=== PATIENT | male | born 1940 | race Caucasian/White ===

== ENCOUNTER → 2016-12-28 | Outpatient (CLI) | payer OTHER, MEDICARE ==
[~2016-12-28] VITALS: Ht 175.3 cm; Wt 101.8 kg
[~2016-12-28] MED LIST: AMLODIPINE BESYL5 MG PO; ASPERDRINK81 MG PO; ASPIR 8181 MG PO; ASPIRIN EC81 M1 PO; ASPIRIN325 PO; ATENOLOL 100MG100 M2 PO; ATENOLOL 50 MG50 M1 OR; ATORVASTATIN CA40 MG PO; BACTRIM DS TAB1 EACH PO; CELEBREX 200 M200 M1 PO; CELEBREX 200 M200 MG PO; CIPRO PO; COLACE100 MG PO; ELIQUIS5 MG PO; FISH OIL 1,0001 EAC5 OR; FISH OIL 1,001000 M2 PO; GLUCOSAMINE &1 EACH PO; HYDROCODON-ACE1 EAC1 PO; IRON PO; LISINOPRIL40 MG PO; METHOCARBAMOL500 M2 PO; MULTIVITAMINS PO; OMEPRAZOLE40 MG PO; PENICILLIN VK500 MG PO; SIMVASTATIN80 MG PO; TAMSULOSIN HCL0.4 MG PO; TENORMIN50 MG PO; TRAMADOL 50 MG50 MG PO; TYLENOL EXTRA500 MG PO; ZETIA10 MG PO
--- NOTE | ~2016-12-28 | HPC ---
[facility] [place] [address] PAIN MANAGEMENT CONSULTATION Name: ANDRE SOUSA Room #: REG ERI Pavon#: [id number] Admission: 12/28/16 Attend Phys: Alhaji Loyd DO Discharge: Date of : 42 Report #: [id number] THIS REPORT FOR: //name// CC: David Loyd HISTORY OF PRESENT ILLNESS: The patient is a very pleasant 76-year-old gentleman long known to the pain clinic, typically treated for lumbar radiculopathy status post decompressive laminectomy, prior history of pyriformis syndrome and right hip DJD. He was last seen in the pain clinic little greater than a year ago, 09/18/2015. He was given epidural injection at L3-L4 at that time. Ultimately, he progressed to have hemilaminectomy and foraminectomy with Dr. Andi Elena on 10/08/2015. This had helped with the ongoing lumbar radicular symptoms. In the interval since I last saw him, he has had significant medical history changes, he has had a right total hip arthroplasty on 10/25/2016. He has had four renal lithiasis episodes this past year. He was diagnosed with atrial fibrillation in January 2016. He is on Eliquis for this latter diagnosis. He returns to pain clinic today with a new complaint. He notes he had fallen out of bed about 2-3 months ago with acute exacerbation of pain in the upper left back, some radiation to the left shoulder and into the triceps. Rates the pain at 2 on a VAS, describes a chronic knot in the upper back. He has been seeing an tractor operator laser leveling. He has been doing some acupressure and myofascial release, but pain continues. He has been using a topical analgesic gel with minimal efficacy. PHYSICAL EXAMINATION: Shows a 76-year-old gentleman, BMI is 33.1 kilograms per meter squared. Vital signs stable as noted in the EMR. Cervical range of motion is full, modest exacerbation of pain with cervical extension. Upper extremity strength shows slight decreased left triceps strength. Hand grasp is symmetric. Deep tendon reflexes are preserved for the biceps and brachioradialis, slight diminution on the left triceps reflex compared to the right. Tinel's is negative. Hand grasp is symmetric. Does have discrete trigger point in the upper thoracic paravertebral muscles just left of midline. Skin integument is otherwise intact. DIAGNOSTIC STUDIES: There are no recent diagnostic studies available for evaluation at this time. ASSESSMENT: Symptomatic myofascial pain with possible component of left C7 radiculopathy in a gentleman with history of lumbar decompressive laminectomy, radicular symptoms, pyriformis syndrome and right hip degenerative joint disease, status post total hip arthroplasty. RECOMMENDATIONS: [address] [address] PAIN MANAGEMENT CONSULTATION Name: ANDRE SOUSA Room #: REG ERI Pavon#: [id number] Admission: 12/28/16 Attend Phys: Alhaji Loyd DO Discharge: Date of : 41 Report #: [id number] 1. Trigger point injections today left thoracic paravertebral muscle. 2. Ice the area today. 3. If this does not ameliorate symptoms in the next 5-7 days, we will move forward with cervical MRI. I would like to see the patient 3 days off Eliquis. If symptoms persist, we will review an MRI at that time and consider moving forward with cervical epidural injection. The patient was seen for approximately 25 minutes today, greater than 50% of time spent counseling the patient. PROCEDURE NOTE: Trigger point injections times 1. PROCEDURE: After written informed consent was obtained, the patient was placed in the seated position. Skin overlying the left upper thoracic paravertebral muscle and trigger point was identified, cleansed with alcohol. Using a 27-gauge needle, 20 mg triamcinolone plus 3 mL of 0.5% preservative-free bupivacaine plus 3 mL of 1.5% preservative-free Xylocaine with 1:200,000 epinephrine was injected into and around the trigger point. Needle was removed. The area was cleansed, Band-Aids applied. The patient monitored for an appropriate period of time, discharged in good and stable condition, noting some incremental improvement of baseline pain. We will plan on scheduling an MRI and followup office visit, off Eliquis; however, if this does help with current symptoms, we will have him simply cancel the MRI and a followup appointment. <ELECTRONICALLY SIGNED> By: Alhaji Loyd DO 12/29/16 [id number] Alhaji Loyd DO /nt
[2016-12-28 14:09] VITALS: BP 120/85
== END | disposition home or self-care (01) ==
LOC: PAIN 08:43
DX: M79.1 Myalgia (principal); Z98.890 Other specified postprocedural states; M16.11 Unilateral primary osteoarthritis, right hip; Z68.33 Body mass index [BMI] 33.0-33.9, adult; M54.16 Radiculopathy, lumbar region; Z87.891 Personal history of nicotine dependence

== ENCOUNTER → 2017-01-11 | Outpatient (CLI) | payer OTHER, MEDICARE ==
[~2017-01-11] VITALS: Ht 177.8 cm; Wt 101.6 kg
--- NOTE | ~2017-01-11 | HPC ---
[facility] [address] [address] PAIN MANAGEMENT CONSULTATION Name: ANDRE SOUSA Room #: REG ERI Pavon#: [id number] Admission: 01/11/17 Attend Phys: Alhaji Loyd DO Discharge: Date of : 41 Report #: [id number] THIS REPORT FOR: //name// CC: David Loyd HISTORY OF PRESENT ILLNESS: The patient is a very pleasant 76-year-old gentleman long known to the pain clinic, initially treated for lumbar radiculopathy, progressed to have decompressive laminectomy. He was last seen in pain clinic on 12/28/2016. Had ongoing left cervical radicular symptoms. I did trigger point injections with some efficacy and ordered an MRI of the cervical spine. He returns to pain clinic today, we reviewed the MRI findings from 01/05/2017. The patient has significant cervical compromise, extensive multilevel cervical spondylosis. C4-C5 notes severe left lateral recess stenosis with effacement of a left C5 nerve root. C5-C6 has broad based posterior disk osteophyte with marked prominence in the left lateral recess region resulting in severe left paracentral and left lateral recess stenosis with compromise in the left C6 nerve root. Canal was narrowed to 7.5 mm. Has severe left neural foraminal stenosis at C6-C7 as well. PHYSICAL EXAMINATION: Shows ongoing cervical radicular symptoms with pain primarily in the C6-C7 radicular pattern and weakness in the left triceps. ASSESSMENT: Symptomatic cervical radiculopathy by clinical exam and history. RECOMMENDATIONS: Cervical epidural injection under fluoroscopy today, follow up in 4 weeks for reevaluation. The patient has been off his Eliquis for 4 days. Have him resume Eliquis tonight. ASSESSMENT: Symptomatic cervical radiculopathy. PROCEDURE: Cervical epidural injection under fluoroscopy. PROCEDURE NOTE: After written and informed consent was obtained including risk of dural puncture, spinal cord trauma, paralysis and increased pain, the patient was taken to the fluoroscopy suite and placed in the prone position, with appropriate abdominal bolstering, neck was flexed, palms under the thighs. Skin was prepped with ChloraPrep. Sterile draping was applied. Skin wheal with 1% Xylocaine was raised. A 22-gauge 3-1/2 inch epidural Tuohy needle was placed via a midline approach at the C7-T1 interspace, advanced under biplanar fluoroscopy using continuous loss of resistance. With appropriate loss of resistance at the expected depth on lateral view, the glass loss of resistance syringe was disconnected. A low volume extension tubing was connected to the needle and a 5 mL syringe. Negative aspiration for cerebrospinal fluid or blood was noted. A 1 mL of Omnipaque was injected which showed spread within the [facility] [address] [place] [address] PAIN MANAGEMENT CONSULTATION Name: ANDRE SOUSA Room #: REG ERI Pavon#: [id number] Admission: 01/11/17 Attend Phys: Alhaji Loyd DO Discharge: Date of : 41 Report #: [id number] epidural space on biplanar fluoroscopy. This was followed with 80 mg of triamcinolone plus 1 mL of 1.5% preservative Xylocaine. Needle was withdrawn to the interspinous ligament, 0.5 mL of Xylocaine was used to flush the needle. The needle was then completely withdrawn. The area was cleansed. Band-Aid was applied. The patient was allowed to move off the procedure table and ambulated to the recovery room, monitored for an appropriate period of time, discharged in good and stable condition. <ELECTRONICALLY SIGNED> By: Alhaji Loyd DO 01/12/17 0731 [id number] Alhaji Loyd DO /nt
[2017-01-11 13:09] VITALS: BP 150/98
== END | disposition home or self-care (01) ==
LOC: PAIN 06:45
DX: M54.12 Radiculopathy, cervical region (principal); M54.16 Radiculopathy, lumbar region; Z98.890 Other specified postprocedural states; Z87.891 Personal history of nicotine dependence

== ENCOUNTER → 2017-12-28 | Outpatient (CLI) | payer OTHER, MEDICARE ==
[~2017-12-28] MED LIST changes: +CLARITIN10 MG PO
== END ==
LOC: RAD 12:26
DX: N20.2 Calculus of kidney with calculus of ureter (principal); M47.816 Spondylosis without myelopathy or radiculopathy, lumbar region; M41.86 Other forms of scoliosis, lumbar region

== ENCOUNTER → 2018-04-26 | Outpatient (CLI) | payer OTHER, MEDICARE | LOC: RAD 16:39 | DX: M50.121 Cervical disc disorder at C4-C5 level with radiculopathy (principal); M48.02 Spinal stenosis, cervical region; I65.29 Occlusion and stenosis of unspecified carotid artery; Z88.8 Allergy status to other drugs, medicaments and biological substances ==

== ENCOUNTER → 2018-05-06 | Outpatient (CLI) | payer OTHER, MEDICARE ==
[~2018-05-06] VITALS: Ht 177.8 cm; Wt 101.2 kg
[~2018-05-06] MED LIST changes: +AMLODIPINE BESY10 MG PO; -AMLODIPINE BESYL5 MG PO
--- NOTE | ~2018-05-06 | HPC ---
[facility] [place] [address] [address] PAIN MANAGEMENT CONSULTATION Name: LARSANDRE SANDERS Room #: REG [facility].#: [id number] Admission: 05/06/18 ������������������ Attend Phys: Aramis Pham MD Discharge: ������������������ Date of : 41 Report #: [id number] THIS REPORT FOR: //name// CC: David Pham DATE OF SERVICE: 05/06/2018 CHIEF COMPLAINT: Followup visit for chronic pain today complaining of cervical pain with radiation on the left in the C6-C7 distribution. HISTORY OF PRESENT ILLNESS: The patient is a longstanding patient of Dr. Alhaji Loyd. Dr. Alhaji Loyd has treated him over the years for a combination of cervical and lumbar radiculopathy. It has been over 2 years since he last experienced symptoms of cervical pain requiring treatment. Today, he reports that he has been experiencing increasing cervical pain, numbness and electric sharp sensations that radiate from his neck through his upper back along the medial border of the scapula and down into his arm involving the fourth and fifth digit. His , Iram, an RN, correctly identifies this as C8 distribution. The pain has been exacerbated by all activities and he has been limited by pain from performing some of the necessary range of motion exercises for improvement. He has been getting relief from rest and lying down and medications. MEDICATIONS: Loratadine, Zetia, Eliquis, Tenormin, Tylenol, Celebrex, atorvastatin, omeprazole, multivitamins, tramadol, amlodipine, lisinopril. In anticipation of an epidural injection, he discontinued his Eliquis on , 5 days ago. Plain film x-ray of the spine was performed, which showed degenerative disk disease at multiple levels, notably at C4-C5, C5-C6 and C6-C7. There is minimal anterolisthesis of C3 on C4 in flexion. He has an MRI, which is about 14 months old and this shows again the multilevel degenerative changes particularly at C4-C5 evolving the exiting nerve roots at C5-C6, correlating with left C6 radicular symptoms with lateral recess narrowing at C6-C7, also with severe left neural foraminal stenosis and at C7-T1 where there is bilateral stenosis more significant on the right. Symptoms again are primarily left-sided today. PQRS statement, he has a history of spinal spondylosis and osteoarthritis. Pain intensity today is 6/10 to 8/10 at the maximum. He has not fallen recently and is not dizzy. He is not considered a fall risk. He takes Eliquis under the direction of Dr. Bassett for treatment of coronary artery disease with stents. He also has hypertension, under treatment by his primary care physician, [place] [address] PAIN MANAGEMENT CONSULTATION Name: ANDRE SOUSA Room #: REG CL [place]#: [id number] Admission: 05/06/18 ������������������ Attend Phys: Aramis Pham MD Discharge: ������������������ Date of : 41 Report #: [id number] Bollier with lisinopril, amlodipine and atenolol. SOCIAL HISTORY: He denies use of tobacco, drinks alcohol in social settings. PHYSICAL EXAMINATION: Cervical range of motion is limited in flexion, extension, lateral tilt, reproducing symptoms along the left side of the neck and into the upper back. He has local tenderness there. There is some general weakness, decreased by about 15% on the comparison in the biceps, triceps and heat regulator on the left from the right. Sensation is diminished in the C8 distribution along the fourth and fifth digit. Deep tendon reflexes are diminished in the tricep on the left. There is no evidence of hyperreflexia. IMPRESSION: 1. Cervical radiculopathy, left C6-C8 distribution. Multilevel degenerative changes with lateral recess stenosis. 2. Coronary artery disease. 3. Hypertension. 4. History of lumbar radiculopathy. RECOMMENDATIONS: Cervical epidural injection under fluoroscopic guidance. Procedure was explained, risks and benefits. He is anxious to proceed today with pain relief. PROCEDURE: He was taken to the fluoroscopic suite, placed prone, skin prepped with ChloraPrep. Skin was anesthetized over the C6-C7 interspace. A 20-gauge Tuohy epidural needle was advanced first attempt into the epidural space to the left of midline. Good loss of resistance was obtained. No blood or CSF was obtained. There was a slight paresthesia noted at the passing of the needle into the epidural space. After negative aspiration, I injected the first 1 mL of normal saline, which injected easily with no discomfort and then followed that with 0.5 mL of Omnipaque demonstrating an epidurogram. Medications spread initially along the right lateral recess, but there was also spread of medication to the left. Needle tip position was felt to be adequate. I then injected a total of 3 mL of 0.5% lidocaine mixed with 80 mg of triamcinolone. He tolerated the procedure well. There were no complications. There was some initial discomfort in the right neck, but this dissipated quickly in the recovery room and was discharged after a short stay without complication. Followup visit planned as needed. ��������������������������������������������� ���������������������������������������� By: ��������������������������������������������� [id number] Aramis Pham MD /nt
[2018-05-06 08:51] VITALS: BP 114/69
--- NOTE | 2018-05-06 09:22 | NUR ---
Pain Clinic Assessment: 1. History of Osteoarthritis: back History of Rheumatoid Arthritis: Not Applicable 2. Height: 5 ft. 10 in. 177.8 cm. Weight: 223.0 lb. oz. 101.152 kg. Patient's BMI: 32.0 3. Vital Signs: BP: 114/69 Pulse: 128 Resp: 14 Temp: 02 Sat: 97 ECG Mon: 4. Pain Intensity: 6--8 5. Fall Risk: Dizziness: N Needs help standing or walking: N Fallen in the last 3 months: Y Fall risk comments: 6. Patient on Blood Thinner: *ELIQUIS 7. History of Hypertension: Y 8. Opioid Therapy greater than 6 weeks: N Opiate Contract Signed: 9. Risk Assessment Tool Provided: 3-low risk 10. Functional Assessment Tool: 11. Recreational Drug Use: Never Drug Type: Tobacco Use: Former Smoker Tobacco Type: Amount or Packs/day: How Many Years: Alcohol Use: Yes Frequency: Quant:
== END | disposition home or self-care (01) ==
LOC: PAIN 05-02 10:27
DX: M50.10 Cervical disc disorder with radiculopathy, unspecified cervical region (principal); M48.02 Spinal stenosis, cervical region; G89.29 Other chronic pain; I10 Essential (primary) hypertension; I25.10 Atherosclerotic heart disease of native coronary artery without angina pectoris; Z79.899 Other long term (current) drug therapy; Z79.01 Long term (current) use of anticoagulants; Z87.891 Personal history of nicotine dependence; Z88.8 Allergy status to other drugs, medicaments and biological substances

== ENCOUNTER → 2018-05-21 | Outpatient (CLI) | payer OTHER, MEDICARE ==
[~2018-05-21] VITALS: Ht 177.8 cm; Wt 101.6 kg
[2018-05-21 09:09] VITALS: BP 128/85
--- NOTE | 2018-05-21 09:10 | NUR ---
Pain Clinic Assessment: 1. History of Osteoarthritis: back History of Rheumatoid Arthritis: Not Applicable 2. Height: 5 ft. 10 in. 177.8 cm. Weight: 224.0 lb. oz. 101.606 kg. Patient's BMI: 32.1 3. Vital Signs: BP: 128/85 Pulse: 83 Resp: 16 Temp: 02 Sat: 98 ECG Mon: 4. Pain Intensity: 5 5. Fall Risk: Dizziness: N Needs help standing or walking: N Fallen in the last 3 months: N Fall risk comments: 6. Patient on Blood Thinner: *ELIQUIS 7. History of Hypertension: Y 8. Opioid Therapy greater than 6 weeks: N Opiate Contract Signed: 9. Risk Assessment Tool Provided: 3-low risk 10. Functional Assessment Tool: 45 11. Recreational Drug Use: Never Drug Type: Tobacco Use: Former Smoker Tobacco Type: Amount or Packs/day: How Many Years: Alcohol Use: Yes Frequency: Quant:
--- NOTE | 2018-05-29 15:29 | HPC ---
[facility] [address] [address] PAIN MANAGEMENT CONSULTATION Name: LARSANDRE SANDERS Room #: REG ERI Viera.#: [id number] Admission: 05/21/18 ������������������ Attend Phys: Aramis Pham MD Discharge: ������������������ Date of : 41 Report #: [id number] THIS REPORT FOR: //name// CC: David Pham DATE OF SERVICE: 05/21/2018 Followup visit for consultation regarding multiple chronic pain issues. A discussion regarding the use of intrathecal therapies for diffuse pain and opioid medication as well as repeat epidural steroid injection for cervical radiculopathy. The patient today is returning for repeat cervical epidural injection. He received 5 days of excellent relief after his last injection, but the pain came back fairly quickly. He has had longer duration in the past. I reviewed those films, found that there was fairly diffuse spread along the right side of the epidural space, but also bilateral spread. I have agreed to repeat the injection today now 1 month afterwards with attempt of prescribing medication a bit more locally ending along the left lateral recess. Nearly 45 minutes were spent in consultation today with him and his regarding chronic intractable pain. He had a number of questions about treatment options. He does complain of a number of different pains including the cervical lumbar radiculopathy, facet pain and right hip pain. He has been treated by Dr. Loyd for myofascial syndrome and trochanteric bursitis. Someone has suggested that he might benefit from the use of an intrathecal pump. A long discussion ensued. We discussed chronic pain in terms of management, not cure. Multiple questions were asked and answered. PHYSICAL EXAMINATION: Today, his blood pressure is 128/85, heart rate 83, respirations 16. Neck range of motion is limited in extension, which reproduces radicular symptoms, primarily to the left shoulder and arm. He has some weakness, which is mild in the left triceps and hand manager infusion. Cervical myofascial trigger points are noted. IMPRESSION: Cervical radiculopathy. RECOMMENDATIONS: Repeat cervical epidural injection under fluoroscopic guidance. PROCEDURE: He was taken to the fluoroscopic suite, placed prone, skin prepped with ChloraPrep. Skin anesthetized over the C6-C7 interspace. A 20-gauge Tuohy epidural needle advanced, first attempt into the epidural space in the left of [address] [address] PAIN MANAGEMENT CONSULTATION Name: ANDRE SOUSA Room #: REG ERI Pavon#: [id number] Admission: 05/21/18 ������������������ Attend Phys: Aramis Pham MD Discharge: ������������������ Date of : 41 Report #: [id number] midline. 1 mL of Isovue was injected. Good spread noted along the left lateral recess. This was then followed by 3 mL of 0.5% lidocaine mixed with 80 mg of triamcinolone. He tolerated the procedure well. Pain was 0 in the recovery room and he was discharged. Follow up as needed. Time spent in consultation was about 40-45 minutes. ��������������������������������������������� <ELECTRONICALLY SIGNED> ���������������������������������������� By: Aramis Pham MD ��������������������������������������������� 05/29/18 1529 [id number] [id number] Aramis Pham MD /nt
== END | disposition home or self-care (01) ==
LOC: PAIN 07:00
DX: M54.12 Radiculopathy, cervical region (principal); G89.29 Other chronic pain; Z79.01 Long term (current) use of anticoagulants; Z87.891 Personal history of nicotine dependence; Z86.73 Personal history of transient ischemic attack (TIA), and cerebral infarction without residual deficits; Z79.899 Other long term (current) drug therapy; Z88.8 Allergy status to other drugs, medicaments and biological substances

== ENCOUNTER → 2018-07-25 | Outpatient (CLI) | payer OTHER, MEDICARE | LOC: RAD 14:08 | DX: N20.2 Calculus of kidney with calculus of ureter (principal); M47.816 Spondylosis without myelopathy or radiculopathy, lumbar region; M41.86 Other forms of scoliosis, lumbar region; Z96.643 Presence of artificial hip joint, bilateral ==

== ENCOUNTER → 2018-08-05 | Outpatient (CLI) | payer OTHER, MEDICARE ==
[~2018-08-05] VITALS: Ht 177.8 cm; Wt 96.1 kg
[~2018-08-05] MED LIST changes: +CYMBALTA30 MG PO; +HYDROCODON-ACE1 EAC5 PO; +METFORMIN HCL500 MG PO
[2018-08-05 09:49] VITALS: BP 131/91
--- NOTE | 2018-08-05 10:04 | NUR ---
Pain Clinic Assessment: 1. History of Osteoarthritis: back History of Rheumatoid Arthritis: Not Applicable 2. Height: 5 ft. 10 in. 177.8 cm. Weight: 211.8 lb. oz. 96.072 kg. Patient's BMI: 30.4 3. Vital Signs: BP: 131/91 Pulse: 102 Resp: 16 Temp: 02 Sat: 100 ECG Mon: 4. Pain Intensity: 3 5. Fall Risk: Dizziness: N Needs help standing or walking: N Fallen in the last 3 months: N Fall risk comments: 6. Patient on Blood Thinner: *ELIQUIS 7. History of Hypertension: Y 8. Opioid Therapy greater than 6 weeks: N Opiate Contract Signed: 9. Risk Assessment Tool Provided: 3-low risk 10. Functional Assessment Tool: 45/ 11. Recreational Drug Use: Never Drug Type: Tobacco Use: Former Smoker Tobacco Type: Amount or Packs/day: How Many Years: Alcohol Use: Yes Frequency: Special Occasions Quant: 1
--- NOTE | 2018-08-06 09:16 | HPC ---
[facility] [place] [address] PAIN MANAGEMENT CONSULTATION Name: ANDRE SOUSA Room #: REG [facility] [place]#: [id number] Admission: 08/05/18 ������������������ Attend Phys: Kika Billy Discharge: ������������������ Date of : 42 Report #: [id number] THIS REPORT FOR: //name// CC: Kika Bassett DATE OF SERVICE: 08/05/2018 CHIEF COMPLAINT: Chronic low back pain and neck pain. HISTORY OF PRESENT ILLNESS: This is a very pleasant 78-year-old gentleman who returns to the pain clinic today for a medication fill of hydrocodone. The patient has recently been in to see Dr. Aramis Pham for a cervical epidural steroid injection, which he tells me he was 90% better, occasional twinges in his neck area, but overall doing quite well. He does have some low back pain that does not radiate into his legs today. His pain score is 3/10, mostly a constant electrical sharp pain, worse with his activities. His medications and lying down are very helpful. In the past, he had been getting tramadol from Dr. Bassett requiring 2-3 tablets a day. Then, after his bilateral hip surgeries, he had been taking hydrocodone half a tablet twice a day of 10/325. He found that was much more effective and was wanting refills of that medication on an ongoing basis to help his overall pain today. Dr. Pham had discussed this previously at his visit for his injection in May. ALLERGIES: NAPROXEN. CURRENT MEDICATIONS: Cymbalta 30 mg, metformin 500 mg, Claritin 10 mg, Eliquis 5 mg, Zetia 10 mg, atenolol 50 mg, Tylenol Extra Strength, Cymbalta 200 mg, atorvastatin 40 mg, omeprazole 40 mg, multivitamin, Colace, amlodipine 10 mg and lisinopril 40 mg. PQRS: 1. He has osteoarthritis in his back and bilateral hips. Denies any rheumatoid arthritis. 2. Height is 5 feet 10 inches, weight is 211, BMI is 30. 3. VITAL SIGNS: Blood signs 131/91, pulse is 102, respirations 16, and oxygen sat is 100. 4. Pain score is 3/10. 5. Fall risk. Denies dizziness. He does not need help with walking or standing. He has not fallen in the last 3 months. 6. The patient is on Eliquis and does take medicines for hypertension. 7. Opioid therapy is greater than 6 weeks; therefore, an opioid signed contract is on the chart. His risk assessment tool is low. His functional assessment is 45/70. [place] [address] PAIN MANAGEMENT CONSULTATION Name: ANDRE SOUSA Room #: REG [facility] [place]#: [id number] Admission: 08/05/18 ������������������ Attend Phys: Kika Billy Discharge: ������������������ Date of : 41 Report #: [id number] 8. Recreational drug use, he denies. He is a former smoker and does drink about one alcoholic drink a day. PHYSICAL EXAMINATION: GENERAL: This is a well-developed, well-nourished 78-year-old gentleman who appears his stated age, placing his current pain score today at 2-3/10. HEENT: Normocephalic, atraumatic. Extraocular eye muscles are intact. Mucous membranes are moist. Hearing is adequate. NECK: No JVD or adenopathy. He has some limited range of motion in extension. He has some cervical myofascial trigger points noted. He has some decrease 4/5 in his muscle strength bilaterally, greater on the left, 5/5 on the right. MUSCULOSKELETAL: Complains of lumbar spine tenderness, does not radiate into his legs. His lower extremity strength judged to be 5/5 in all major muscle groups. He does walk with a slightly antalgic gait. ASSESSMENT: 1. Cervical radiculopathy. 2. History of lumbar radiculopathy. 3. Management of high risk medications under terms of written opioid agreement. 4. Constipation. We reviewed the fact that opiate medications are being used to provide analgesia adequate to support activities of daily living, not attempting to achieve a specific pain score on the 0-10 Visual Analog Scale. The current opiate medications are providing sufficient analgesia to allow the patient to participate in activities of daily living. The patient is not exhibiting any aberrant behavior suggestive of drug diversion. The patient is not having any adverse reactions to medications. The patient is not suffering from daytime somnolence or mental acuity changes. The patient is managing opiate-induced constipation with appropriate cxwj-dye-djtntdr agents and dietary considerations. The patient was counseled on concern for caution with operating a motor vehicle while using opiate medications. A physical exam was performed and the patient's functional status was evaluated. All patients with back pain were advised against the bed rest greater than 4 days and were advised to return to normal activities. Pain score assessment was noted and the treatment plan was reviewed with the patient. All current medications, both prescribed and OTC were reviewed and reconciled on the electronic medical record. Tobacco screening was accomplished and smoking cessation was advised when indicated. BMI was noted and diet/exercise modification was recommended for all patients following outside normal parameters. I reviewed with the patient today their responsibilities to safeguard prescription medications, reviewed their responsibility to utilize medications only as prescribed by the physician. They are to seek and receive pain [address] [place] [address] PAIN MANAGEMENT CONSULTATION Name: LARSANDRE SANDERS Room #: REG [facility] M.Dulce.#: [id number] Admission: 08/05/18 ������������������ Attend Phys: Kika Billy Discharge: ������������������ Date of : 41 Report #: [id number] medications only from 1 physician group ( [facility]). They are to use 1 pharmacy and keep the clinic informed if they change pharmacies. Their responsibilities include making followup visits in a timely fashion and to avoid abrupt discontinuation of medication usage. Their responsibilities further include bringing their medications (bottles from the pharmacy with residual pills) to the visit for possible confirmation of pill counts and the patient understands it is their responsibility to submit to random drug screens to ensure both that the medications prescribed are present, and that no other controlled substances are present. All prescriptions provided today were generated electronically. PLAN: 1. We discussed treatment options with the patient today. The patient tells me in the past he had taken tramadol under the direction of Dr. Bassett and then most recently had been receiving hydrocodone from Dr. Calderón, his orthopedic doctor, who is no longer writing for these medications. He found that the hydrocodone half a tablet twice a day was much more beneficial in controlling his overall pain. He had discussed with Dr. Pahm in depth in May and is here for scripts today. 2. The patient also complains of constipation, it is under control with Colace, but I did discuss with him about ongoing constipation issues with narcotic use and to make sure that he does take medicines on a daily basis if he needs to and increase his water intake. 3. According to the CDC guidelines, placing the patient on a 10/325 of hydrocodone half a tablet twice a day, puts him at [address] below the CDC guidelines. We did check the prescription monitoring system today and he had not filled from any other physicians within the past month. 4. Scripts given today for hydrocodone 10/325, #30, for today and 4-week release and the patient did sign an opioid agreement. We discussed this that he will not get medications from other physicians for narcotics and only from this office. 5. Dr. Aramis Pham did come see the patient today and collaborated care. ��������������������������������������������� <ELECTRONICALLY SIGNED> ���������������������������������������� By: Kika Billy ��������������������������������������������� 08/06/18 0916 1025 [id number] Kika Billy /nt
== END ==
LOC: PAIN 06:39
DX: M96.1 Postlaminectomy syndrome, not elsewhere classified (principal); M47.26 Other spondylosis with radiculopathy, lumbar region; Z79.899 Other long term (current) drug therapy

== ENCOUNTER → 2018-08-29 | Outpatient (CLI) | payer OTHER, MEDICARE ==
[~2018-08-29] VITALS: Ht 177.8 cm; Wt 96.2 kg
[2018-08-29 09:01] VITALS: BP 128/88
--- NOTE | 2018-08-29 09:13 | NUR ---
Pain Clinic Assessment: 1. History of Osteoarthritis: back History of Rheumatoid Arthritis: Not Applicable 2. Height: 5 ft. 10 in. 177.8 cm. Weight: 212.0 lb. oz. 96.163 kg. Patient's BMI: 30.4 3. Vital Signs: BP: 128/88 Pulse: 109 Resp: 20 Temp: 02 Sat: 96 ECG Mon: 4. Pain Intensity: 7 5. Fall Risk: Dizziness: N Needs help standing or walking: N Fallen in the last 3 months: N Fall risk comments: 6. Patient on Blood Thinner: *ELIQUIS 7. History of Hypertension: Y 8. Opioid Therapy greater than 6 weeks: Y Opiate Contract Signed: 08/05/18 9. Risk Assessment Tool Provided: 3-low risk 10. Functional Assessment Tool: 11. Recreational Drug Use: Never Drug Type: Tobacco Use: Former Smoker Tobacco Type: Amount or Packs/day: How Many Years: Alcohol Use: Yes Frequency: Quant:
--- NOTE | 2018-08-30 07:27 | HPC ---
[facility] [address] [place] [address] PAIN MANAGEMENT CONSULTATION Name: ANDRE SOUSA Room #: REG [facility] Maximiliano.#: [id number] Admission: 08/29/18 ������������������ Attend Phys: Kika Billy Discharge: ������������������ Date of : 41 Report #: [id number] THIS REPORT FOR: //name// CC: Kika Bassett DATE OF SERVICE: 08/29/2018 CHIEF COMPLAINT: Chronic low back pain and neck pain. HISTORY OF PRESENT ILLNESS: This is a very pleasant 78-year-old gentleman who returns to the Pain Clinic today to discuss his medications. The patient tells me that he is going to undergo an intrathecal pump trial with Dr. Elena on 09/11/2018 and if that is helpful in relieving some of his pain, he will have it implanted on 09/13/2018. Dr Elena will be managing the intrathecal pump. In the meantime, he has been experiencing increasing pain in his low back, right hip and right groin. He tells me that it is a 7/10, mostly a constant numbness electrical pain, worse with activity and walking. His medications are helpful, but he feels like he is in need of one additional pain pill a day. He has been currently taking hydrocodone 10/325 a half in the morning and a half at night. He feels that he needs another at least a half, during the day to control his pain. The patient tells me that sitting down and lying down are also helpful, but this medication has been most beneficial. He does tell me he has been having some diarrhea. He was taking Colace twice a day. He has reduced that to once a day and hopefully that will decrease his diarrhea. He would like to discuss increasing his hydrocodone today. ALLERGIES: NAPROXEN. CURRENT MEDICATIONS: Hydrocodone 10/325, duloxetine 30 mg, metformin 500 mg, Claritin 10 mg, Eliquis 5 mg, Zetia 10 mg, Tenormin 50 mg, Tylenol Extra Strength 4-6 a day, Celebrex 200 mg, Lipitor 80 mg, omeprazole 40 mg, multivitamins, stool softener, amlodipine 10 mg and lisinopril 40 mg. PQRS: 1. He has osteoarthritis in his bilateral hips and his lumbar spine. He denies any rheumatoid arthritis. 2. Height is 5 feet 10 inches, weight is 212 and BMI is 30. 3. VITAL SIGNS: Blood signs 128/88, pulse is 109, respirations 20 and oxygen sat is 96. 4. Pain score 7/10. 5. Fall risk. Denies dizziness, does not need help standing, but he does use a walker. He has not fallen in the last 3 months. 6. The patient is on Eliquis and takes medicine for hypertension. [address] [address] PAIN MANAGEMENT CONSULTATION Name: ANDRE SOUSA Room #: REG [facility] [place]#: [id number] Admission: 08/29/18 ������������������ Attend Phys: Kika Billy Discharge: ������������������ Date of : 41 Report #: [id number] 7. Opioid therapy is greater than 6 weeks; therefore, an opioid signed contract is on the chart. 8. Risk assessment tool is low. Functional assessment is 45/70. 9. Recreational drug use, he denies. He is a former smoker and does drink alcohol. We did check the prescription monitoring system, the patient filled his last prescription on time. He safeguards his medication and did bring his bottle with him today and he does have 5 pills left for the remainder of the script. PHYSICAL EXAMINATION: GENERAL: This is a well-developed, well-nourished 78-year-old gentleman who appears his stated age. Placing his pain score today at 7/10. HEENT: Normocephalic and atraumatic. Extraocular eye muscles are intact. Mucous membranes are moist. Hearing is adequate. NECK: Without JVD or adenopathy. He does have some limited range of motion and extension of his neck. He has some cervical myofascial trigger points noted. MUSCULOSKELETAL: Complains of lumbar tenderness, radiates into his right hip into his right groin, not down his legs at this time. His lower extremity strength judged to be 5/5 in all major muscle groups. He has decreased arm strength 4/5 greater on the left than the right. He walks with a slightly antalgic gait and uses a walker. ASSESSMENT: 1. Cervical radiculopathy. 2. History of lumbar radiculopathy. 3. Management of high risk medications under terms of written opioid agreement. We reviewed the fact that opiate medications are being used to provide analgesia adequate to support activities of daily living, not attempting to achieve a specific pain score on the 0-10 Visual Analog Scale. The current opiate medications are providing sufficient analgesia to allow the patient to participate in activities of daily living. The patient is not exhibiting any aberrant behavior suggestive of drug diversion. The patient is not having any adverse reactions to medications. The patient is not suffering from daytime somnolence or mental acuity changes. The patient is managing opiate-induced constipation with appropriate ujzt-xgn-tmtkaqx agents and dietary considerations. The patient was counseled on concern for caution with operating a motor vehicle while using opiate medications. A physical exam was performed and the patient's functional status was evaluated. All patients with back pain were advised against the bed rest greater than 4 days and were advised to return to normal activities. Pain score assessment was noted and the treatment plan was reviewed with the patient. All current medications, both prescribed and OTC were reviewed and reconciled on the [facility] [address] [place] [address] PAIN MANAGEMENT CONSULTATION Name: LARSANDRE VIRAMONTESLEY Room #: REG [facility] M.R.#: [id number] Admission: 08/29/18 ������������������ Attend Phys: Kika Billy Discharge: ������������������ Date of : 41 Report #: [id number] electronic medical record. Tobacco screening was accomplished and smoking cessation was advised when indicated. BMI was noted and diet/exercise modification was recommended for all patients following outside normal parameters. I reviewed with the patient today their responsibilities to safeguard prescription medications, reviewed their responsibility to utilize medications only as prescribed by the physician. They are to seek and receive pain medications only from 1 physician group ( [facility]). They are to use 1 pharmacy and keep the clinic informed if they change pharmacies. Their responsibilities include making followup visits in a timely fashion and to avoid abrupt discontinuation of medication usage. Their responsibilities further include bringing their medications (bottles from the pharmacy with residual pills) to the visit for possible confirmation of pill counts and the patient understands it is their responsibility to submit to random drug screens to ensure both that the medications prescribed are present, and that no other controlled substances are present. All prescriptions provided today were generated electronically. PLAN: 1. We discussed treatment options with the patient today. The patient tells me he is wanting to increase his hydrocodone up to 2 times a day. This would place him at [address] below the CDC guidelines, but he tells me he is also having an intrathecal trial within the next 2 weeks. I explained to him that usually they would like him to decrease his narcotics prior to his trial to have a successful intrathecal trial. The patient thinks that Dr. Elena's office did tell him that. 2. I did speak with Dr. Pham who did see the patient as well today in collaborated care. We explained to the patient's lowest most effective dose prior to surgery. We will allow him to increase it to 2 tablets a day for 1-week and then to decrease back to 1 tablet a day prior to his trial. The patient is agreeable with this. 3. The patient was given a script for hydrocodone 10/325, #60 today with no additional refills. This should be enough medications to get him through his trial period and postop period. 4. The patient will follow up with us for injection therapy only and we will void the contract that he has on file with us. ��������������������������������������������� <ELECTRONICALLY SIGNED> ���������������������������������������� By: Kika Billy ��������������������������������������������� 08/30/18 0727 0949 [id number] Kika Billy /julienne
== END ==
LOC: PAIN 06:52
DX: M54.16 Radiculopathy, lumbar region (principal); M54.12 Radiculopathy, cervical region; G89.29 Other chronic pain; Z79.899 Other long term (current) drug therapy; Z88.8 Allergy status to other drugs, medicaments and biological substances; Z79.891 Long term (current) use of opiate analgesic

== ENCOUNTER → 2019-01-22 | Outpatient (CLI) | payer OTHER, MEDICARE | LOC: HYPER 16:57 | DX: S51.801A Unspecified open wound of right forearm, initial encounter (principal); S41.111A Laceration without foreign body of right upper arm, initial encounter; C61 Malignant neoplasm of prostate; E78.5 Hyperlipidemia, unspecified; G89.29 Other chronic pain; I10 Essential (primary) hypertension; I25.10 Atherosclerotic heart disease of native coronary artery without angina pectoris; K21.9 Gastro-esophageal reflux disease without esophagitis; M19.90 Unspecified osteoarthritis, unspecified site; Z87.891 Personal history of nicotine dependence; Z96.643 Presence of artificial hip joint, bilateral; Z86.73 Personal history of transient ischemic attack (TIA), and cerebral infarction without residual deficits; Z79.01 Long term (current) use of anticoagulants; W19.XXXA Unspecified fall, initial encounter; Y93.89 Activity, other specified; Y92.89 Other specified places as the place of occurrence of the external cause; Y99.8 Other external cause status ==

== ENCOUNTER → 2019-02-05 | Outpatient (CLI) | payer OTHER, MEDICARE | LOC: HYPER 08:01 | DX: S41.111D Laceration without foreign body of right upper arm, subsequent encounter (principal); S41.011D Laceration without foreign body of right shoulder, subsequent encounter; I10 Essential (primary) hypertension; C61 Malignant neoplasm of prostate; I25.10 Atherosclerotic heart disease of native coronary artery without angina pectoris; K21.9 Gastro-esophageal reflux disease without esophagitis; G89.29 Other chronic pain; M19.90 Unspecified osteoarthritis, unspecified site; Z96.641 Presence of right artificial hip joint; Z79.01 Long term (current) use of anticoagulants; Z91.81 History of falling; Z86.73 Personal history of transient ischemic attack (TIA), and cerebral infarction without residual deficits; Z85.46 Personal history of malignant neoplasm of prostate; Z87.891 Personal history of nicotine dependence; W19.XXXD Unspecified fall, subsequent encounter ==

== ENCOUNTER → 2019-09-09 | Outpatient (CLI) | payer OTHER, MEDICARE | LOC: RAD 15:42 | PROVIDERS: ATTEND Family Medicine | DX: S20.219A Contusion of unspecified front wall of thorax, initial encounter (principal); I70.0 Atherosclerosis of aorta; X58.XXXA Exposure to other specified factors, initial encounter; Y93.89 Activity, other specified; Y92.89 Other specified places as the place of occurrence of the external cause; Y99.8 Other external cause status ==